=== PATIENT | female | born 1980 | race Caucasian/White ===

== ENCOUNTER 2019-06-04 10:10 | Inpatient (IN) | payer OTHER ==
[~2019-06-04] VITALS: Ht 160 cm; Wt 66.2 kg
[~2019-06-04 10:10] MED LIST: IBUP-2070 PO
[2019-06-04] MEDS ORDERED: RINGERS SOLUTION,LACTATED 1,000 ML IV PRN (11:08)
[2019-06-04] MEDS ORDERED: OXYTOCIN 30 UNITS/LACT RINGERS 500 ML IV ONE (11:08)
[2019-06-04] MEDS ORDERED: RINGERS SOLUTION,LACTATED 1,000 ML IV SCH (11:08)
[2019-06-04] MEDS ORDERED: FentaNYL CITRATE-PF 100 MCG/2 ML VIAL IVP PRN ×3 (11:15→19:45)
[2019-06-04] MEDS ORDERED: METOCLOPRAMIDE HCL 5 MG/ML 2 ML VIAL IVP PRN (11:15)
[2019-06-04] MEDS ORDERED: TERBUTALINE SULFATE 1 MG/ML VIAL SQ PRN (11:15)
[2019-06-04] MEDS ORDERED: CITRIC ACID/SODIUM CITRATE 30 ML SOLUTION UDCUP PO PRN (11:15)
[2019-06-04 11:45] LABS: BASOPHILS % (AUTO) 0.4 % (0.0-2.0); EOSINOPHILS % (AUTO) 0.9 % (1.0-6.0); HEMATOCRIT 36.3 % (36-46); HEMOGLOBIN 12.2 g/dL (12.0-16.0); LYMPHOCYTES # (AUTO) 1.6 K/uL (1.0-4.8); LYMPHOCYTES % (AUTO) 22.8 % (22.0-44.0); MEAN CORPUSCULAR HEMOGLOBIN 31.3 pg (26.0-34.0); MEAN CORPUSCULAR HGB CONC 33.6 G/dL (31.0-37.0); MEAN CORPUSCULAR VOLUME 93 fL (80-100); MONOCYTES # (AUTO) 0.3 K/uL (0.1-1.0); NEUTROPHILS % (AUTO) 71.9 % (40.0-70.0); PLATELET COUNT (AUTO)-OB 290 K/uL (150-450); RED CELL DISTRIBUTION WIDTH 14.1 % (11.5-14.5)
[2019-06-04] MEDS ORDERED: OXYTOCIN 30 UNITS/LACT RINGERS 500 ML IV PRN (12:20)
[2019-06-04] MEDS ORDERED: DINOPROSTONE 10 MG VAGINAL SUPPOSITORY VG ONE (12:30)
[2019-06-04] MEDS ORDERED: SODIUM CHLORIDE 0.9% 1,000 ML IV ONE (15:24)
[2019-06-04] MEDS ORDERED: BUPIVACAINE HCL/DEX-WATER/PF 0.75% 2 ML AMP ONE (15:24)
[2019-06-04] MEDS ORDERED: HYDROmorphone 2 MG/ML SYRINGE IVP PRN (15:45)
[2019-06-04] MEDS ORDERED: LANOLIN 7 GM OINTMENT TP PRN (15:45)
[2019-06-04] MEDS ORDERED: OxyCODONE HCL/ACETAMINOPHEN 5-325 MG TABLET PO PRN ×2 (15:45)
[2019-06-04] MEDS ORDERED: MEPERIDINE-PF 25 MG/ML VIAL IVP PRN (15:45)
[2019-06-04] MEDS ORDERED: GUM MASTIC/STORAX/MSAL/ALCOHOL LIQUID 0.67 ML VIAL TP ONE (16:32)
[2019-06-04] MEDS ORDERED: NALBUPHINE HCL 10 MG/ML VIAL IVP PRN ×2 (19:45)
[2019-06-04] MEDS ORDERED: DiphenhydrAMINE HCL 50 MG/ML VIAL IVP PRN (19:45)
[2019-06-04] MEDS ORDERED: ONDANSETRON HCL 4 MG/2 ML VIAL IVP PRN (19:45)
[2019-06-04] MEDS ORDERED: NALOXONE HCL 0.4 MG/ML VIAL IVP PRN (19:45)
[2019-06-04] MEDS ORDERED: MORPHINE SULFATE 10 MG/ML SYRINGE IVP PRN (19:45)
[2019-06-04] MEDS ORDERED: OXYGEN THERAPY IH SCH ×3 (20:00)
[2019-06-04] MEDS: KETOROLAC TROMETHAMINE 30 MG/ML VIAL IVP SCH (21:41)
[2019-06-04] MEDS: SENNA/DOCUSATE SODIUM 8.6-50 MG TABLET PO SCH (21:42)
[2019-06-04] MEDS: ACETAMINOPHEN 1000 MG/ISO-OSM 100 ML IV SCH (21:44)
[2019-06-04] MEDS: RINGERS SOLUTION,LACTATED 1,000 ML IV SCH (23:59)
[2019-06-05] MEDS ORDERED: -PHARMACY NOTE- MISC ONE (00:30)
[2019-06-05] MEDS: KETOROLAC TROMETHAMINE 30 MG/ML VIAL IVP SCH (03:37)
[2019-06-05] MEDS ORDERED: OXYTOCIN 10 UNITS/ML VIAL IM ONE (05:25)
[2019-06-05] MEDS ORDERED: EPHEDrine SULFATE 50 MG/ML VIAL IM ONE (05:25)
[2019-06-05] MEDS ORDERED: 0.9% SODIUM CHLORIDE 10 ML VIAL IVP ONE (05:25)
[2019-06-05] MEDS ORDERED: ONDANSETRON HCL 4 MG/2 ML VIAL IVP ONE (05:25)
[2019-06-05] MEDS ORDERED: KETOROLAC TROMETHAMINE 60 MG/2 ML VIAL IM ONE (05:25)
[2019-06-05] MEDS: ACETAMINOPHEN 1000 MG/ISO-OSM 100 ML IV SCH (05:33)
[2019-06-05 05:58] LABS: BASOPHILS % (AUTO) 0.4 % (0.0-2.0); HEMATOCRIT 29.3 % (36-46); HEMOGLOBIN 9.9 g/dL (12.0-16.0); LYMPHOCYTES # (AUTO) 1.6 K/uL (1.0-4.8); LYMPHOCYTES % (AUTO) 16.5 % (22.0-44.0); MEAN CORPUSCULAR HEMOGLOBIN 31.5 pg (26.0-34.0); MEAN CORPUSCULAR HGB CONC 33.6 G/dL (31.0-37.0); MEAN CORPUSCULAR VOLUME 94 fL (80-100); MONOCYTES # (AUTO) 0.5 K/uL (0.1-1.0); MONOCYTES % (AUTO) 5.2 % (2.0-9.0); NEUTROPHILS # (AUTO) 7.4 K/uL (1.8-7.7); NEUTROPHILS % (AUTO) 76.9 % (40.0-70.0); PLATELET COUNT (AUTO)-OB 203 K/uL (150-450); RED BLOOD CELL COUNT(AUTO) 3.13 MIL/uL (4.00-5.20); RED CELL DISTRIBUTION WIDTH 14.3 % (11.5-14.5)
[2019-06-05] MEDS: RINGERS SOLUTION,LACTATED 1,000 ML IV SCH (06:45)
[2019-06-05] MEDS: SENNA/DOCUSATE SODIUM 8.6-50 MG TABLET PO SCH (08:48)
[2019-06-05] MEDS: IBUPROFEN 800 MG TABLET PO PRN (17:00)
[2019-06-06] MEDS ORDERED: MORPHINE SULFATE/PF 0.5 MG/ML 10 ML AMP IVP ONE (01:32)
[2019-06-06] MEDS ORDERED: FentaNYL CITRATE-PF 100 MCG/2 ML VIAL IVP ONE (01:32)
[2019-06-06] MEDS: IBUPROFEN 800 MG TABLET PO PRN (02:14)
[2019-06-06] MEDS ORDERED: PREN-155 PO (14:00)
== END 2019-06-06 14:35 | disposition home or self-care (01) | DRG 787 ==
LOC: 4S 10:10 → OBSVTOIN 10:10 → 4S 22:49
PROVIDERS: ADMIT Obstetrics & Gynecology; ATTEND Obstetrics & Gynecology
PROC: 10D00Z1 Extraction of Products of Conception, Low, Open Approach (ICD-10-PCS; principal; 2019-06-04)
DX: O76 Abnormality in fetal heart rate and rhythm complicating labor and delivery (principal); O41.03X0 Oligohydramnios, third trimester, not applicable or unspecified; O77.0 Labor and delivery complicated by meconium in amniotic fluid; O36.5930 Maternal care for other known or suspected poor fetal growth, third trimester, not applicable or unspecified; Z3A.39 39 weeks gestation of pregnancy; Z37.0 Single live birth
CPT/HCPCS: 86850; 86900; 86901; J0131; J0690; J1885; J2274; J2405; J2590; J2765; J3010; J3490; J7030; J7120